=== PATIENT | female | born 1995 | race African-American/Black ===

== ENCOUNTER 2019-12-29 09:26 | Emergency (ER) | payer MEDICAID ==
[~2019-12-29] VITALS: Ht 162.6 cm; Wt 60.0 kg
[2019-12-29] MEDS ORDERED: SODIUM CHLORIDE 0.9% 1,000 ML IV ONE (09:54)
[2019-12-29] MEDS ORDERED: ACETAMINOPHEN 325MG TABLET PO ONE (10:00)
[2019-12-29 10:40] LABS: BASOPHILS % 0.5 % (0.0-2.0); EOSINOPHILS % 3.2 % (0.0-5.0); HEMOGLOBIN. 10.6 g/dL (12.0-16.0); LYMPHOCYTES % 20.3 % (20.0-50.0); MEAN CORPUSCULAR HEMOGLOBIN 28.6 pg (28.0-32.0); MEAN CORPUSCULAR VOLUME 83.3 fL (81.0-99.0); MEAN PLATELET VOLUME 10.9 fl (7.4-10.4); MONOCYTES % 7.7 % (2.0-8.0); NEUTROPHILS % 68.3 % (40.0-76.0); PLATELET 224 x1000/uL (130-400); RED BLOOD CELL COUNT 3.72 mill/uL (4.2-5.4); RED CELL DISTRIBUTION WIDTH 13.7 % (11.6-14.6)
[2019-12-29 10:49] LABS: CHLORIDE 108 mEq/L (98-107)
[2019-12-29 10:56] LABS: CLARITY URINE CLEAR (CLEAR); COLOR URINE YELLOW (YELLOW); KETONES URINE NEGATIVE (NEGATIVE); LEUKOCYTE ESTERASE URINE NEGATIVE (NEGATIVE); NITRITE URINE NEGATIVE (NEGATIVE); OCCULT BLOOD URINE NEGATIVE (NEGATIVE); PH URINE 7.5 (4.5-8.0); PROTEIN URINE NEGATIVE (NEGATIVE); SPECIFIC GRAVITY URINE 1.005 (1.005-1.030); UROBILINOGEN URINE 0.2 E.U./dL (0.2-1.0)
[2019-12-29 11:14] LABS: B-HCG QUANTITATIVE 10574 mIU/mL (<3)
[2019-12-29 12:53] VITALS: BP 99/63
[2019-12-30 09:12] LABS: *AMPHETAMINES SCREEN URINE NEGATIVE (NEGATIVE); *BARBITURATES SCREEN URINE NEGATIVE (NEGATIVE); *BENZODIAZEPINES SCREEN URINE NEGATIVE (NEGATIVE); *COCAINE SCREEN URINE NEGATIVE (NEGATIVE); CANNABINOID URINE SCREEN NEGATIVE (NEGATIVE); METHADONE URINE SCREEN NEGATIVE (NEGATIVE); OPIATES URINE SCREEN NEGATIVE (NEGATIVE); PHENCYCLIDINE URINE SCREEN NEGATIVE (NEGATIVE)
== END 2019-12-29 12:59 | disposition home or self-care (01) ==
LOC: ER 09:26
DX: O26.92 Pregnancy related conditions, unspecified, second trimester (principal); M54.6 Pain in thoracic spine; J45.909 Unspecified asthma, uncomplicated; Z3A.19 19 weeks gestation of pregnancy
CPT/HCPCS: 36415; 71045; 76805; 80053; 80305; 81003; 81025; 83690; 83880; 84484; 84702; 85025; 85379; 86850; 86900; 86901; 93005; 93970; 99285; J7030